=== PATIENT | female | born 1985 | race Hispanic/Latino ===

== ENCOUNTER 2019-07-28 19:53 | Emergency (ER) | payer MEDICAID ==
[2019-07-28] MEDS ORDERED: AMOXICILLIN 500 MG CAPSULE PO ONE (20:17)
[2019-07-28] MEDS ORDERED: ACETAMINOPHEN EXTRA STRENGTH 500 MG TABLET ONE (20:17)
== END 2019-07-28 21:08 | disposition home or self-care (01) ==
LOC: EDH 19:53
DX: K04.7 Periapical abscess without sinus (principal)

== ENCOUNTER 2020-05-10 05:43 | Emergency (ER) | payer MEDICAID ==
[2020-05-10] MEDS ORDERED: LIDOCAINE HCL 2% VISCOUS 15 ML UDCUP ONE (06:38)
[2020-05-10] MEDS ORDERED: CLINDAMYCIN HCL 150 MG CAP ONE (06:38)
[2020-05-10] MEDS ORDERED: IBUPROFEN 400 MG TABLET ONE (06:38)
[2020-05-10] MEDS ORDERED: IBUPROFEN 200 MG TAB ONE (06:39)
[2020-05-10] MEDS ORDERED: ACETAMINOPHEN EXTRA STRENGTH 500 MG TABLET ONE (06:39)
== END 2020-05-10 06:51 | disposition home or self-care (01) ==
LOC: EDH 05:43
DX: K02.9 Dental caries, unspecified (principal); F32.9 Major depressive disorder, single episode, unspecified; F20.9 Schizophrenia, unspecified; Z98.890 Other specified postprocedural states

== ENCOUNTER 2021-04-11 01:10 | Emergency (ER) | payer MEDICAID ==
[~2021-04-11] VITALS: Ht 165.1 cm; Wt 71.7 kg
[2021-04-11 01:11] VITALS: BP 113/74
[2021-04-11] MEDS ORDERED: IBUPROFEN 600 MG TABLET ONE (01:34)
[2021-04-11] MEDS ORDERED: ACETAMINOPHEN 500 MG TABLET PO ONE (02:00)
[2021-04-11] MEDS ORDERED: AMOX-429 PO (02:07)
[2021-04-11] MEDS ORDERED: AMOX/CLAV 875/125MG TAB PO ONE ×2 (02:07→02:30)
== END 2021-04-11 02:15 | disposition home or self-care (01) ==
LOC: EDH 01:10
DX: K04.7 Periapical abscess without sinus (principal); K08.89 Other specified disorders of teeth and supporting structures

== ENCOUNTER 2021-04-14 09:06 | Emergency (ER) | payer MEDICAID ==
[~2021-04-14] VITALS: Ht 162.6 cm; Wt 71.2 kg
[~2021-04-14 09:06] MED LIST: AMOX-429 PO
[2021-04-14 09:19] VITALS: BP 102/61
[2021-04-14 09:39] LABS: BASOPHILS % (AUTO) 0.3 % (0.0-5.0); EOSINOPHILS % (AUTO) 2.8 % (0.0-8.0); HEMATOCRIT 27.8 % (36-48); LYMPHOCYTES % (AUTO) 20.4 % (21.0-51.0); MEAN CORPUSCULAR HEMOGLOBIN 22.9 pg (27.0-33.0); MEAN CORPUSCULAR HGB CONC 29.1 g/dL (32.0-36.0); MEAN CORPUSCULAR VOLUME 78.8 fL (79-99); MONOCYTES % (AUTO) 8.2 % (3.0-13.0); NEUTROPHILS % (AUTO) 67.9 % (40.0-77.0); PLATELET COUNT (AUTO) 288 K/uL (130-400); RED BLOOD CELL COUNT(AUTO) 3.53 MIL/uL (4.00-5.50); RED CELL DISTRIBUTION WIDTH 14.7 % (11.0-15.5); WHITE BLOOD COUNT (AUTO) 9.7 K/uL (4.8-10.8)
[2021-04-14 09:43] LABS: CREATININE 0.8 mg/dL (0.5-1.5); POTASSIUM 3.3 mmol/L (3.5-5.1)
[2021-04-14 09:47] LABS: ALBUMIN 3.1 g/dL (3.5-5.0); BILIRUBIN,TOTAL 0.3 mg/dL (0.2-1.0); TOTAL PROTEIN, SERUM 6.6 g/dL (6.0-8.3)
[2021-04-14] MEDS ORDERED: LORAZEPAM 2 MG/ML 1 ML VIAL IVP SCH (10:00)
[2021-04-14] MEDS ORDERED: FERR324T PO (11:16)
== END 2021-04-14 11:46 | disposition home or self-care (01) ==
LOC: EDH 09:06 → EDBD 09:06 → EDH 11:46
DX: F41.9 Anxiety disorder, unspecified (principal); D64.9 Anemia, unspecified; Z79.899 Other long term (current) drug therapy
CPT/HCPCS: 36415; 71045; 80053; 84484; 84703; 85025; 93005